=== PATIENT | male | born 1980 | race Caucasian/White ===

== ENCOUNTER 2018-05-22 11:44 | Emergency (ER) | payer MEDICAID ==
[~2018-05-22] VITALS: Ht 175.3 cm; Wt 82.3 kg
[2018-05-22 12:09] VITALS: Ht 175.3 cm; Wt 82.3 kg
[2018-05-22 13:07] LABS: BASOPHIL % 0.3 % (0-2); PLATELET COUNT 274 x10^3mcL (130-400)
[2018-05-22 13:28] LABS: CALCIUM 8.8 mg/dL (8.5-10.1); CARBON DIOXIDE 31.2 mmol/L (21-32); CHLORIDE SERUM 103 mmol/L (98-107); GFR1 > 60 mL/min; GLUCOSE SERUM 150 mg/dL (74-106); POTASSIUM SERUM 3.5 mmol/L (3.5-5.1); SODIUM SERUM 140 mmol/L (136-145)
[2018-05-22 13:30] LABS: FREE T4 0.8 ng/dL (0.76-1.46); FREE THYROXINE INDEX 1.7 ug/dL (1.4-4.5); T4(THYROXINE) 5.2 ug/dL (4.7-13.3)
[2018-05-22 13:32] LABS: ALBUMIN 3.7 g/dL (3.4-5.0); ALKALINE PHOSPHATASE 112 U/L (46-116); ALT/SGPT 87 U/L (16-63); AST/SGOT 58 U/L (15-37); BILIRUBIN TOTAL 0.57 mg/dL (0.20-1.00); HDL CHOLESTEROL 52 mg/dL (40-60); LIPASE 188 IU/L (73-393); TOTAL PROTEIN, SERUM 7.9 g/dL (6.4-8.2)
[2018-05-22 13:35] LABS: CHOLESTEROL 248 mg/dL (<200); CHOLESTEROL/HDL RATIO 4.8; TRIGLYCERIDES 337 mg/dL (<150)
[2018-05-22 13:37] LABS: T3 TOTAL 1.11 ng/mL
[2018-05-22 14:39] VITALS: BP 138/97
== END 2018-05-22 14:39 | disposition home or self-care (01) ==
LOC: ED 11:44
PROVIDERS: Specialist
DX: R42 Dizziness and giddiness (principal); R55 Syncope and collapse; J32.0 Chronic maxillary sinusitis; Z90.49 Acquired absence of other specified parts of digestive tract
CPT/HCPCS: 36415; 83880; 84439

== ENCOUNTER 2018-11-08 15:12 | Emergency (ER) | payer MEDICAID ==
[~2018-11-08] VITALS: Ht 175.3 cm; Wt 83.0 kg
[2018-11-08 15:14] VITALS: BP 137/77; Ht 175.3 cm; Wt 83.0 kg
== END 2018-11-08 17:04 | disposition home or self-care (01) ==
LOC: ED 15:12
DX: H10.31 Unspecified acute conjunctivitis, right eye (principal); Z90.89 Acquired absence of other organs

== ENCOUNTER 2020-01-21 18:48 | Emergency (ER) | payer MEDICAID ==
[~2020-01-21] VITALS: Ht 172.7 cm; Wt 82.6 kg
[2020-01-21 18:53] VITALS: BP 144/93; Ht 172.7 cm; Wt 82.6 kg
== END 2020-01-21 20:01 | disposition home or self-care (01) ==
LOC: ED 18:48
DX: M54.2 Cervicalgia (principal); Z90.89 Acquired absence of other organs